=== PATIENT | female | born 2000 | race Caucasian/White ===

== ENCOUNTER 2024-11-05 19:23 | Outpatient (CLI) | payer OTHER ==
[2024-11-05 19:25] VITALS: BP 119/81
[2024-11-05] MEDS ORDERED: CHILDREN'S ASPI81 MG PO (19:32)
[2024-11-05] MEDS ORDERED: PRENATAL TABLE1 EAC1 PO (19:32)
[2024-11-05] MEDS ORDERED: RINGERS SOLUTION,LACTATED 1,000 ML IV SCH (20:00)
[2024-11-05 20:02] LABS: URINE APPEARANCE Cloudy; URINE BILIRRUBIN Negative (NEGATIVE); URINE BLOOD Negative; URINE COLOR Yellow; URINE GLUCOSE Negative (NEGATIVE); URINE KETONE Negative (NEGATIVE); URINE LEUKOCYTE Small; URINE NITRATE Negative; URINE PROTEIN Negative (NEGATIVE)
[2024-11-05 20:03] LABS: HEMATOCRIT 35.6 % (36.0-45.00); HEMOGLOBIN 11.8 g/dL (12.0-15.00); MEAN CELL VOLUME 85.8 fL (80.00-100.00); MEAN CORPUSCULAR HEMOGLOBIN 28.4 pg (27.00-32.0); MEAN CORPUSCULAR HGB CONC 33.1 g/dl (32.0-36.0); PLATELET COUNT 215 K/uL (150-450); RED BLOOD COUNT 4.15 M/uL (4.00-6.00); RED CELL DISTRIBUTION WIDTH 13.3 % (11.5-14.5)
[2024-11-05 20:05] LABS: URINE BACTERIA 2944.5 uL (0.0-1933); URINE EPITHELIAL CELLS 90.2 uL (0.0-38.8); URINE RBC 2.7 uL (0.0-20.8)
[2024-11-05 20:26] LABS: INR 0.99; PARTIAL THROMBOPLASTIN TIME 27.7 SECONDS (22.0-34.0); PROTHROMBIN TIME 10.8 SECONDS (9.0-11.5)
[2024-11-05 20:32] LABS: ALBUMIN 2.7 gm/dL (3.4-5.0); BILIRUBIN TOTAL 0.4 mg/dL (0.3-1.2); CALCIUM 9.3 mg/dL (8.5-10.1); CREATININE SERUM 0.62 mg/dL (0.55-1.02); GFR 117.28; GLOBULINA 3.4 G/DL (2.4-3.5); POTASSIUM 4.01 mEq/L (3.5-5.1); TOTAL PROTEIN 6.1 gm/dL (6.4-8.2)
[2024-11-05 20:52] LABS: URINE CAST 0.14 uL (0.0-1.40)
[2024-11-05 23:46] VITALS: BP 102/64
[2024-11-06 04:23] VITALS: BP 102/66
[2024-11-06 07:17] VITALS: BP 102/66
[2024-11-06 11:06] VITALS: BP 101/66
[2024-11-06 15:07] VITALS: BP 100/62
[2024-11-06 19:26] VITALS: BP 96/68
[2024-11-06 20:56] LABS: CREATININE URINE 62.6 MG/DL; URINE PROT QUANT 24HR 8.4 MG/DL
[2024-11-06 20:59] LABS: CREATINE CLEARANCE 193.2 ML/MIN (97-137); CREATININE SERUM 0.62 mg/dL (0.6-1.0)
[2024-11-06 22:03] VITALS: BP 96/68
== END 2024-11-06 22:03 | disposition home or self-care (01) ==
LOC: OBS/DEL 19:23
PROVIDERS: ATTEND Specialist
DX: O16.3 Unspecified maternal hypertension, third trimester (principal); Z3A.33 33 weeks gestation of pregnancy

== ENCOUNTER 2024-12-08 21:27 | Inpatient (IN) | payer OTHER ==
[~2024-12-08] VITALS: Ht 167.6 cm; Wt 103.4 kg
[2024-12-08 21:10] VITALS: BP 136/73
[~2024-12-08 21:27] MED LIST: CHILDREN'S ASPI81 MG PO; PRENATAL TABLE1 EAC1 PO
[2024-12-08] MEDS ORDERED: RINGERS SOLUTION,LACTATED 1,000 ML IV SCH (21:45)
[2024-12-08 23:11] LABS: HEMATOCRIT 38.8 % (36.0-45.00); MEAN CORPUSCULAR HEMOGLOBIN 28.4 pg (27.00-32.0); MEAN CORPUSCULAR HGB CONC 33.5 g/dl (32.0-36.0); PLATELET COUNT 233 K/uL (150-450); RED BLOOD COUNT 4.56 M/uL (4.00-6.00); RED CELL DISTRIBUTION WIDTH 13.8 % (11.5-14.5); URINE APPEARANCE Clear; URINE BILIRRUBIN Negative (NEGATIVE); URINE BLOOD NHT; URINE COLOR Yellow; URINE GLUCOSE Negative (NEGATIVE); URINE KETONE Negative (NEGATIVE); URINE LEUKOCYTE Trace; URINE NITRATE Negative; URINE PROTEIN Negative (NEGATIVE)
[2024-12-08 23:15] LABS: URINE BACTERIA 419.8 uL (0.0-1933); URINE EPITHELIAL CELLS 27.3 uL (0.0-38.8); URINE RBC 47.4 uL (0.0-20.8); URINE WBC 13.1 uL (0.0-23.2)
[2024-12-08 23:32] VITALS: BP 128/82
[2024-12-08 23:32] LABS: INR 0.94; PARTIAL THROMBOPLASTIN TIME 28.3 SECONDS (22.0-34.0); PROTHROMBIN TIME 10.3 SECONDS (9.0-11.5)
[2024-12-08 23:40] LABS: ALBUMIN 2.8 gm/dL (3.4-5.0); BILIRUBIN TOTAL 0.42 mg/dL (0.3-1.2); CALCIUM 9.5 mg/dL (8.5-10.1); CREATININE SERUM 0.59 mg/dL (0.55-1.02); GFR 124.19; GLOBULINA 3.7 G/DL (2.4-3.5); POTASSIUM 4.54 mEq/L (3.5-5.1); TOTAL PROTEIN 6.5 gm/dL (6.4-8.2)
[2024-12-09] VITALS (7 sets, daily range): BP systolic 111–138; BP diastolic 71–81
[2024-12-09] MEDS ORDERED: OXYTOCIN 20 UNITS/1000ML RL PIGGYBAG IV ONE (02:30)
[2024-12-09] MEDS ORDERED: LIDOCAINE HCL 1% 10ML VIAL ONE (02:30)
[2024-12-09] MEDS ORDERED: CHLORHEXIDINE GLUCONATE 120 ML BOTTLE TOP ONE ×2 (02:30→05:00)
[2024-12-09] MEDS ORDERED: ERYTHROMYCIN BASE OPHT 1GM EACH TUBE OP ONE ×2 (02:30→05:00)
[2024-12-09] MEDS ORDERED: OXYTOCIN 20 UNITS/500ML RL PIGGYBAG IV ONE (02:48)
[2024-12-09] MEDS ORDERED: OXYTOCIN 500 ML IV SCH (03:00)
[2024-12-09] MEDS ORDERED: OXYTOCIN 1,000 ML IV SCH (05:15)
[2024-12-09] MEDS ORDERED: IBUprofen 600 MG TABLET PO SCH (08:00)
[2024-12-10 01:25] VITALS: BP 123/79
[2024-12-10 08:00] VITALS: BP 107/71
[2024-12-10 16:52] VITALS: BP 118/79
[2024-12-11 00:02] VITALS: BP 125/85
[2024-12-11 08:57] VITALS: BP 116/79
== END 2024-12-11 14:37 | disposition home or self-care (01) | DRG 807 ==
LOC: OB/GYN 21:27 → LDR 21:27 → OB/GYN 12-09 04:41
PROVIDERS: Student in an Organized Health Care Education/Training Program; ADMIT Specialist; ATTEND Specialist
PROC: 10E0XZZ Delivery of Products of Conception, External Approach (ICD-10-PCS; principal; 2024-12-09)
PROC: 0UQG7ZZ Repair Vagina, Via Natural or Artificial Opening (ICD-10-PCS; 2024-12-09)
PROC: 4A1HXCZ Monitoring of Products of Conception, Cardiac Rate, External Approach (ICD-10-PCS; 2024-12-10)
DX: O71.4 Obstetric high vaginal laceration alone (principal); O13.4 Gestational [pregnancy-induced] hypertension without significant proteinuria, complicating childbirth; Z37.0 Single live birth; Z3A.37 37 weeks gestation of pregnancy